=== PATIENT | male | born 1945 | race Caucasian/White ===

== ENCOUNTER → 2019-07-03 | Outpatient (CLI) | payer MEDICARE ==
[~2019-07-03] MED LIST: REGADENOSON 0.4 MG/5 ML DISP.SYRIN. IV ONE
--- NOTE | 2019-07-03 16:51 | PCVCIMAG ---
APPROVED REPORT Study performed: 07/03/2019 08:09:53 EXAM: Comprehensive 2D, Doppler, and color-flow Echocardiogram Patient Location: Echo lab Room #: 2Status: routine BSA: 2.53 HR: 73 bpmBP: 136/80 mmHg Rhythm: NSR Other Information Study Quality: Adequate Risk Factors: Cardiac Risk Factors: HTN, Hyperlipidemia, DM, Smoking Indications Murmur 2D Dimensions IVSd: 12.39 (7-11mm)LVOT Diam: 22.00 (18-24mm) LVDd: 62.92 mm PWd: 13.29 (7-11mm)Ascending Ao: 38.20 (22-36mm) LVDs: 50.40 (25-40mm) Left Atrium: 42.47 (27-40mm) Aortic Root: 38.37 mm LV Single Plane 4CH: 53.41 % LV Single Plane 2CH: 59.32 % Biplane EF: 56.4 % Volumes Left Atrial Volume (Systole) Single Plane 4CH: 109.24 mLSingle Plane 2CH: 95.68 mL LA ESV Index: 41.00 mL/m2 Aortic Valve AoV Peak Jean Marie.: 4.36 m/s AO Peak Gr.: 76.08 mmHgLVOT Max P.02 mmHg AO Mean Gr.: 50.11 mmHgLVOT Mean P.79 mmHg AO V2 Mean: 3.41 m/sLVOT Max V: 1.12 m/s AO V2 VTI: 113.04 cmLVOT Mean V: 0.79 m/s TA (VTI): 0.95 [id number] V1 VTI: 28.63 cm TA Vmax: 0.96 cm2 AI Vmax: 4.57 m/sSV (LVOT): 107.02 mL AI Troup: 2.45 m/s2 AI PHT: 543.96 ms Mitral Valve E/A Ratio: 0.7 MV Decel. Time: 340.23 ms MV E Max Jean Marie.: 0.71 m/s MV A Jean Marie.: 1.04 m/s IVRT: 93.43 ms TDI E/Lateral E': 14.20E/Medial E': 14.20 Medial E' Jean Marie.: 0.05 m/s Lateral E' Jean Marie.: 0.05 m/s Pulmonary Valve PV Peak Jean Marie.: 1.08 m/sPV Peak Gr.: 4.67 mmHg Pulmonary Vein P Vein S: 0.39 m/sP Vein A: 0.20 m/s P Vein D: 0.61 m/sP Vein A Dur.: 117.6 msec P Vein S/D Ratio: 0.64 Tricuspid Valve RAP Estimate: 10.00 mmHg Left Ventricle Left ventricle is dilated. There is normal LV segmental wall motion. Mild concentric left ventricular hypertrophy. Left ventricular systolic function is borderline. LVEF is 50-55%. Mild diastolic dysfunction is present (impaired relaxation pattern). Right Ventricle The right ventricle is normal size. The right ventricular systolic function is normal. Atria Left atrium is mildly dilated. Right atrium is borderline dilated. Aortic Valve Aortic valve is calcified. Mild aortic regurgitation. The aortic valve maximum pressure gradient is 76 mmHg and the mean pressure gradient is 50 mmHg. The calculated aortic valve area is 0.9 cm2. Moderate to severe aortic stenosis. Mitral Valve There is mitral annular calcification. Moderate mitral regurgitation. No evidence of mitral valve stenosis. Tricuspid Valve The tricuspid valve is normal in structure. Trace tricuspid regurgitation. Unable to assess PA pressure. Pulmonic Valve The pulmonary valve is normal in structure. Trace pulmonic regurgitation. Great Vessels The aortic root is normal in size. The ascending aorta is normal in size. IVC is dilated and collapses >50% with inspiration. Pericardium There is no pericardial effusion. <Conclusion> Left ventricle is dilated. Mild concentric left ventricular hypertrophy. LVEF is 50-55%. Mild diastolic dysfunction is present (impaired relaxation pattern). The right ventricle is normal size. Left atrium is mildly dilated. Right atrium is borderline dilated. Aortic valve is calcified. Mild aortic regurgitation. The aortic valve maximum pressure gradient is 76 mmHg and the mean pressure gradient is 50 mmHg. The calculated aortic valve area is 0.9 cm2. Moderate to severe aortic stenosis. Moderate mitral regurgitation. There is mitral annular calcification. Moderate mitral regurgitation. Trace tricuspid regurgitation. Unable to assess PA pressure. The aortic root is normal in size. There is no pericardial effusion.
--- NOTE | 2019-07-04 11:58 | PCVCIMAG ---
APPROVED REPORT Imaging Protocol: Rest Tc-99m/Stress Tc-99m 1 day Study performed: 07/03/2019 09:39:00 Indication: Pre-Operative CV evaluation Patient Location: Out-Patient Stress Nurse: Mariah Coughlin RN, Radha Ramirez RN VA Tech:Becky Mcdowellhbun [facility] Ht: 6 ft 2 in Wt: 285 lbs BSA: 2.53 m2 HR: 57 bpm BP: 162/87 mmHg BMI: 36.5 Rhythm: Sinus Bradycardia, 1st degree AV block Medical History Medical History: Hyperlipidemia, HTN, Diabetes, Current Smoker Medications: Atorvastatin, Zetia, HCTZ, Losartan, Bystolic Allergies: Idione, Tetracysline Cardiac Risk Factors: Age, FHX of CAD Pretest Chest Pain Characteristics: No chest pain Exercise History: Physically active Meds Held (24 hrs): Bystolic Resting Data Rest SPECT myocardial perfusion imaging was performed in supine position 45 minutes following the intravenous injection of 14.5 mCi of Tc-99m Sestamibi. Time of rest injection: 929 Date: 07/03/2019 Administration Route: IV Administration Site: Right AC Pharmacologic Stress Pharmacologic stress test was performed by injecting Regadenoson 0.4 mg IV push over 10-15 seconds immediately followed by the intravenous injection of 41.4 mCi of Tc-99m Sestamibi. Time of stress injection: 1030 Date: 07/03/2019 Administration Route: IV Administration Site: Right AC Gated Stress SPECT was performed 45 minutes after stress injection. The images were gated to evaluate regional wall motion and calculate left ventricular ejection fraction. Stress Test Details Stress Test: Pharmacologic stress testing performed using 0.4 mg of regadenoson per 5 mL given IV over 10 seconds. Reason for pharmacologic stress test: arthritic hips. HRMax Heart Rate (APMHR): 148 bpm Resting HR: 57 bpmTarget HR (85% APMHR): 125 bpm Max HR Achieved: 71 bpm % of APMHR: 47 Recovery HR: 68 bpm BP Resting BP: 162/87 mmHg Max BP: 146/80 mmHg Recovery BP: 175/95 mmHg ECG Resting ECG: Sinus Bradycardia, 1st degree AV block Stress ECG: Sinus Rhythm, 1st degree AV block Arrhythmia: None Recovery ECG: Sinus Rhythm, 1st degree AV block Clinical Reason for Termination: Completed protocol Stress Symptoms: Headache Symptoms resolved with caffeine. Stress ECG Conclusion ECG: Non-ischemic Study Quality Study: Good Study Data Post stress, the left ventricular ejection was 45%.. SSS: 6 SRS: 2 SDS: 4 TID = 1.07. Perfusion No evidence of stress induced ischemia or prior myocardial infarction. Wall Motion Moderately increased left ventricular size and mildly decreased function with no regional wall motion abnormalities. Nuclear Conclusion No evidence of stress induced ischemia or prior myocardial infarction. Post stress, the left ventricular ejection was 45%. No prior study available for comparison. Interpreted by: Aime Parmar MD Electronically Approved: 07/03/2019 12:26:13 <Conclusion> ECG: Non-ischemic
== END | disposition home or self-care (01) ==
LOC: PCVCIMAG 08:14
PROVIDERS: ATTEND Internal Medicine Cardiovascular Disease
DX: Z01.818 Encounter for other preprocedural examination (principal); I08.0 Rheumatic disorders of both mitral and aortic valves; I10 Essential (primary) hypertension; G47.33 Obstructive sleep apnea (adult) (pediatric); Z88.8 Allergy status to other drugs, medicaments and biological substances
CPT/HCPCS: 78452; 93017; 93306; A9500; J2785

== ENCOUNTER → 2019-07-09 | Outpatient (CLI) | payer MEDICARE ==
--- NOTE | 2019-07-09 13:27 | PCVCIMAG ---
EXAM: BILATERAL CAROTID DUPLEX INDICATION: Carotid Occlusive Disease. FINDINGS: Doppler Measurements (centimeters per second): RIGHT: Peak CCA-69, Peak ECA-139, Diastolic ICA-34, Peak ICA-98, ICA/CCA Ratio-1.4. LEFT: Peak CCA-76, Peak ECA-151, Diastolic ICA-39, Peak ICA-133, ICA/CCA Ratio-1.8. RIGHT CAROTID: The carotid bulb has moderate plaque. The proximal internal carotid artery shows <40% stenosis. The common carotid artery shows no significant stenosis. The external carotid artery shows 40% stenosis. LEFT CAROTID: The carotid bulb has moderate plaque. The proximal internal carotid artery shows 40-50% stenosis. The common carotid artery shows no significant stenosis. The external carotid artery shows 50% stenosis. Antegrade flow in both vertebral arteries. IMPRESSION: <40% stenosis of the right internal carotid artery with moderate plaque. 40-50% stenosis of the left internal carotid artery with moderate plaque. LOC:[place] [id number]
--- NOTE | 2019-07-09 15:50 | PCVCIMAG ---
EXAM: AORTOILIAC DUPLEX INDICATION: Abdominal aortic aneurysm. FINDINGS: AORTA: Suprarenal aorta measures maximum diameter of 3.6 cm. There is a fusiform infrarenal aortic aneurysm. The infrarenal aorta measures maximum diameter of 4.9 x 5.0 cm. No aortic stenosis. RIGHT COMMON ILIAC ARTERY: Maximum diameter is 2.1 x 2.2 cm. No significant stenosis. RIGHT EXTERNAL ILIAC ARTERY: No significant stenosis. LEFT COMMON ILIAC ARTERY: Maximum diameter is 3.1 x 3.3 cm. No significant stenosis. LEFT EXTERNAL ILIAC ARTERY: No significant stenosis. IMPRESSION: 5.0 cm infrarenal abdominal aortic aneurysm. 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 3.1 x 3.3 cm fusiform aneurysm involving the mid/distal left common iliac artery. Further evaluation with CTA of the abdomen and pelvis is suggested. LOC:[id number]
== END | disposition home or self-care (01) ==
LOC: PCVCIMAG 08:32
PROVIDERS: ATTEND Internal Medicine Cardiovascular Disease
DX: I65.23 Occlusion and stenosis of bilateral carotid arteries (principal); I72.3 Aneurysm of iliac artery; I72.9 Aneurysm of unspecified site; I25.10 Atherosclerotic heart disease of native coronary artery without angina pectoris; E78.5 Hyperlipidemia, unspecified; I10 Essential (primary) hypertension; M19.90 Unspecified osteoarthritis, unspecified site; E11.9 Type 2 diabetes mellitus without complications
CPT/HCPCS: 93880; 93978